=== PATIENT | male | born 1950 | race Caucasian/White ===

== ENCOUNTER 2019-04-05 12:18 | Emergency (ER) | payer OTHER ==
[2019-04-05 12:33] VITALS: BMI 28.8
--- NOTE | 2019-04-05 14:52 | PDOC ---
History of Present Illness - General Chief Complaint: Edema Stated Complaint: Abscess Boil Time Seen by Provider: 04/05/19 14:39 - History of Present Illness Initial Comments: 04/05/19 20:49 68M with pmh of stents and maxillary teeth removal 5 years ago presents with right-sided facial swelling, pain and redness since waking waking up this morning. The patient was asymptomatic last night. He states that the right side of the face is tender tot he touch, and extends from the lower eyelid to the right jaw line. Denies pain upon chewing. Denies fever, chills, n/v/d, Recent trauma or insect bite. Didn't take anything for the pain. Past History - Past Medical History Allergies/Adverse Reactions: Allergies Allergy/AdvReac Type Severity Reaction Status Date / Time No Known Allergies Allergy Verified 04/05/19 12:35 Home Medications: Ambulatory Orders Clindamycin [Cleocin -] 450 mg PO TID #63 capsule 04/05/19 predniSONE [Deltasone -] 40 mg PO DAILY #10 tablet 04/05/19 Cardiac Disorders: Yes (CAD) COPD: No - Surgical History Cardiac Surgery: Yes (stents) - Suicide/Smoking/Psychosocial Hx Smoking History: Former smoker Have you smoked in the past 12 months: No If you are a former smoker, when did you quit?: 2013 Information on smoking cessation initiated: No Hx Alcohol Use: No Drug/Substance Use Hx: No Review of Systems - Review of Systems Able to Perform ROS?: Yes Is the patient limited Amharic proficient: No Constitutional: No: Symptoms Reported HEENTM: Yes: See HPI Respiratory: No: Symptoms reported Cardiac (ROS): No: Symptoms Reported ABD/GI: No: Symptoms Reported : No: Symptoms Reported Musculoskeletal: No: Symptoms Reported Integumentary: No: Symptoms Reported Neurological: No: Symptoms reported All Other Systems: Reviewed and Negative *Physical Exam - Vital Signs Last Vital Signs Temp Pulse Resp BP Pulse Ox 98.1 F 100 H 20 133/104 H 99 04/05/19 12:30 04/05/19 12:30 04/05/19 12:30 04/05/19 12:30 04/05/19 12:30 - Physical Exam General Appearance: Yes: Nourished, Appropriately Dressed. No: Apparent Distress HEENT: positive: EOMI, ANA, Other (right sided erythematous swelling of the face with tenderness over zygomatic arch, extending from lower eyelid to jaw line. No change in vision, no pain or discomfort ranging the eye. ) ED Treatment Course - LABORATORY CBC & Chemistry Diagram: 04/05/19 15:10 04/05/19 15:10 Medical Decision Making - Medical Decision Making 04/05/19 20:54 Will start patient on antibiotics and obtain CT facial bone to r/o abscess. However this could very well be cellulitis, erysipelas due tot he redness and tenderness of the area. The swelling is extensive and the facial movements of the patients are ipaired on the right side. However this may also be some sort of inflammtion or allergic reaction, due to the rapid onset, non-progression of the rash, edematous nature of the skin. Ct read: polypoid thickening of the maxillary sinus, worse on the right. Patient feels better after Unasyn administration however the rash is the same size and just as swollen. Given the inflammatory nature of the Ct finding, will give trial of prednisone and benadryl. Patient signed out to Dr. Ayala. *DC/Admit/Observation/Transfer Diagnosis at time of Disposition: Facial cellulitis, Swelling of face - Discharge Dispostion Disposition: HOME Condition at time of disposition: Guarded - Prescriptions Prescriptions: Clindamycin [Cleocin -] 450 mg PO TID #63 capsule predniSONE [Deltasone -] 40 mg PO DAILY #10 tablet - Referrals - Patient Instructions Printed Discharge Instructions: DI for Cellulitis -- Adult Additional Instructions: You were seen today for facial swelling. Your white blood cell count was mildly high, indicating infection vs inflammation. You were advised to stay in the hospital admitted for further care. I have sent a steroid and antibiotic to your pharmacy of choice. 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 You received the first doses in the Emergency Department. Take Benadryl over the counter as needed for swelling. Take as advised on labels. Follow up with your primary care doctor within 3 days. Your care is not complete until you follow up. Return to the Emergency Department for increasing swelling, increasing redness, fever, vomiting, chest pain, shortness of breath, lightheadedness, difficulty breathing, noisy breathing or any other new, worsening or concerning symptoms. - Post Discharge Activity
[2019-04-05] MEDS ORDERED: AMPICILLIN NA/SULBACTAM NA 3 GM in SODIUM CHLORIDE 100 ML IVPB ONE (15:08)
[2019-04-05 15:31] LABS: BASO % 0.5 % (0-2.0); EOS % 0.3 % (0-4.5); HEMATOCRIT 42.8 % (35.4-49); LYMPH % 22.9 % (8-40); MCH 29.2 pg (25.7-33.7); MCHC 35.1 g/dl (32.0-35.9); MEAN CELL VOLUME 83.3 fl (80-96); MEAN PLT VOLUME 8.7 fl (7.5-11.1); MONO % 9.3 % (3.8-10.2); RBC 5.13 M/mm3 (4.00-5.60); RDW 13.3 % (11.9-15.9); WHITE BLOOD COUNT 10.6 K/mm3 (4.0-10.0)
[2019-04-05 15:34] LABS: PLATELET COUNT 200 K/MM3 (134-434)
[2019-04-05 15:55] LABS: ALBUMIN 3.8 g/dl (3.4-5.0); BLOOD UREA NITROGEN 13.8 mg/dL (7-18); CALCIUM 9.2 mg/dL (8.5-10.1); CREATININE 0.9 mg/dL (0.55-1.3)
--- NOTE | 2019-04-05 16:53 | PDOC ---
Documentation entered by Rico Roman SCRIBE, acting as scribe for Maria Eugenia Jose MD. Maria Eugenia Jose MD: This documentation has been prepared by the Abel bates Elijah, SCRIBE, under my direction and personally reviewed by me in its entirety. I confirm that the documentation accurately reflects all work, treatment, procedures, and medical decision making performed by me. Attending Attestation - Resident Resident Name: Francisco Sharp - ED Attending Attestation I have performed the following: I have examined & evaluated the patient, The case was reviewed & discussed with the resident, I agree w/resident's findings & plan - HPI HPI: 04/05/19 15:12 Patient is a 68 year old male with Cardiac Stents and HTN who presents to the ED with R-sided facial swelling beginning this morning. Patient reports that he woke up this morning, immediately noticed his face was swollen and notes he felt some tenderness on his cheek. Patient mentioned that nothing like this has happened in the past. Denies Pain, fever and chills. Allergies: NKA - Physicial Exam PE: 04/05/19 15:19 CONSTITUTIONAL: Well-appearing; well-nourished; in no apparent distress HEAD: Normocephalic; atraumatic EYES: PERRL; EOM intact FACE: +Erythema and Swelling of R-Side of face, not warm. +R-Sided Facial Droop ENMT: +Right Upper Gum Tenderness to Touch. Normal oropharynx NECK: Supple; non-tender; no cervical lymphadenopathy CARD: Normal S1, S2; no murmurs, rubs, or gallops RESP: Normal chest excursion with respiration; breath sounds clear and equal bilaterally; no wheezes, rhonchi, or rales ABD: Soft, non-distended; non-tender; no palpable organomegaly, no palpable hernias EXT: Normal ROM in all four extremities; non-tender to palpation; distal pulses intact SKIN: Warm, dry, no rash NEURO: No focal neurological deficiencies. - Medical Decision Making 04/05/19 19:14 68 y/o male awakened this morning with rt side facial swelling and sensitivity. PT is concerned this is related to the fact that he has several dental fragments still embed in his gums. PT reports having several teeth pulled approximately 5 years ago but the teeth were not completely extracted. He said he was warned that if he ever developed swelling over the area he was at risk for infection. Pt currently denies fever, insect bite, headache, change in vision or other symptoms. Pt with tender upper gum line on physical exam concerning for possible dental abscess.Pt's labs noted, pt received Unasyn in ED , ct of facial bones ordered to further evaluate condition.Case endorsed to oncoming team to f/u CT and make final disposition for this patient.Pt was in stable condition at time of writers last exam.
[2019-04-05] MEDS ORDERED: predniSONE 10 MG TABLET (UD) PO ONE (19:01)
--- NOTE | 2019-04-05 19:27 | PDOC ---
*Physical Exam - Vital Signs Last Vital Signs Temp Pulse Resp BP Pulse Ox 98.0 F 98 H 14 135/96 96 04/05/19 18:21 04/05/19 18:21 04/05/19 18:21 04/05/19 18:21 04/05/19 18:21 ED Treatment Course - LABORATORY CBC & Chemistry Diagram: 04/05/19 15:10 04/05/19 15:10 - ADDITIONAL ORDERS Additional order review: Laboratory Results 04/05/19 15:10 Sodium 138 Potassium 4.0 Chloride 107 Carbon Dioxide 21 Anion Gap 11 BUN 13.8 Creatinine 0.9 Est GFR (CKD-EPI)AfAm 100.65 Est GFR (CKD-EPI)NonAf 86.84 Random Glucose 221 H Calcium 9.2 Total Bilirubin 1.0 AST 5 L ALT 20 Alkaline Phosphatase 110 Total Protein 7.0 Albumin 3.8 04/05/19 15:10 RBC 5.13 MCV 83.3 MCHC 35.1 RDW 13.3 MPV 8.7 Neutrophils % 67.0 Lymphocytes % 22.9 Monocytes % 9.3 Eosinophils % 0.3 Basophils % 0.5 - Medications Given in the ED: ED Medications Discontinued Medications Generic Name Dose Route Start Last Admin Trade Name Freq PRN Reason Stop Dose Admin Ampicillin Sodium/Sulbactam 100 mls @ 200 mls/hr 04/05/19 15:08 04/05/19 16: 02 Sodium 3 gm/ Sodium Chloride IVPB 04/05/19 15:37 200 mls/hr ONCE ONE Administration Medical Decision Making - Medical Decision Making Pt signed out to me by Dr. Sharp, EM Day Resident. 68 year old male with presented to ED for right sided facial swelling. Initial Vital Signs Temp Pulse Resp BP Pulse Ox 98.1 F 100 H 20 133/104 H 99 04/05/19 12:30 04/05/19 12:30 04/05/19 12:30 04/05/19 12:30 04/05/19 12:30 Afebrile. Mild tachycardia. No tachypnea. Mild hypertension. No hypoxia on room air. Vital Signs Temperature 98.0 F 04/05/19 18:21 Pulse Rate 98 H 04/05/19 18:21 Respiratory Rate 14 04/05/19 18:21 Blood Pressure 135/96 04/05/19 18:21 O2 Sat by Pulse Oximetry (%) 96 04/05/19 18:21 CBC WBC 10.6 K/mm3 (4.0-10.0) H 04/05/19 15:10 RBC 5.13 M/mm3 (4.00-5.60) 04/05/19 15:10 Hgb 15.0 GM/dL (11.7-16.9) 04/05/19 15:10 Hct 42.8 % (35.4-49) 04/05/19 15:10 MCV 83.3 fl (80-96) 04/05/19 15:10 MCH 29.2 pg (25.7-33.7) 04/05/19 15:10 MCHC 35.1 g/dl (32.0-35.9) 04/05/19 15:10 RDW 13.3 % (11.9-15.9) 04/05/19 15:10 Plt Count 200 K/MM3 (134-434) 04/05/19 15:10 MPV 8.7 fl (7.5-11.1) 04/05/19 15:10 Absolute Neuts (auto) 7.1 K/mm3 (1.5-8.0) 04/05/19 15:10 Neutrophils % 67.0 % (42.8-82.8) 04/05/19 15:10 Lymphocytes % 22.9 % (8-40) 04/05/19 15:10 Monocytes % 9.3 % (3.8-10.2) 04/05/19 15:10 Eosinophils % 0.3 % (0-4.5) 04/05/19 15:10 Basophils % 0.5 % (0-2.0) 04/05/19 15:10 Nucleated RBC % 0 % (0-0) 04/05/19 15:10 Mild leukocytosis. No anemia. CMP Sodium 138 mmol/L (136-145) 04/05/19 15:10 Potassium 4.0 mmol/L (3.5-5.1) 04/05/19 15:10 Chloride 107 mmol/L (98-107) 04/05/19 15:10 Carbon Dioxide 21 mmol/L (21-32) 04/05/19 15:10 Anion Gap 11 MMOL/L (8-16) 04/05/19 15:10 BUN 13.8 mg/dL (7-18) 04/05/19 15:10 Creatinine 0.9 mg/dL (0.55-1.3) 04/05/19 15:10 Est GFR (CKD-EPI)AfAm 100.65 04/05/19 15:10 Est GFR (CKD-EPI)NonAf 86.84 04/05/19 15:10 Random Glucose 221 mg/dL (74-106) H 04/05/19 15:10 Calcium 9.2 mg/dL (8.5-10.1) 04/05/19 15:10 Total Bilirubin 1.0 mg/dL (0.2-1) 04/05/19 15:10 AST 5 U/L (15-37) L 04/05/19 15:10 ALT 20 U/L (13-61) 04/05/19 15:10 Alkaline Phosphatase 110 U/L (45-117) 04/05/19 15:10 Total Protein 7.0 g/dl (6.4-8.2) 04/05/19 15:10 Albumin 3.8 g/dl (3.4-5.0) 04/05/19 15:10 No electrolyte abnormalities. No [place]. No transaminitis. CT Face/Paranasalsinus/manible without IV contrast: No definiitive periapical/ gingival abscesses. polypoid mucosal thickening of bilateral maxillary antra, right greater than left. orbits and EOM are within normal limits. the soft tissues are unremarkable. Medications given: Benadryl, prednisone, unasyn Pt to be admitted for facial cellulitis/swelling. Pending admission. 04/05/19 19:58 Need for admission for observation, IV antibiotics, steroid treatment. Pt refused admission. Will prescribe prednisone, clindamycin. Given return precautions. *DC/Admit/Observation/Transfer Diagnosis at time of Disposition: Facial cellulitis, Swelling of face - Discharge Dispostion Disposition: HOME Condition at time of disposition: Guarded Decision to Admit order: No - Prescriptions Prescriptions: Clindamycin [Cleocin -] 450 mg PO TID #63 capsule predniSONE [Deltasone -] 40 mg PO DAILY #10 tablet - Referrals - Patient Instructions Printed Discharge Instructions: DI for Cellulitis -- Adult Additional Instructions: You were seen today for facial swelling. Your white blood cell count was mildly high, indicating infection vs inflammation. You were advised to stay in the hospital admitted for further care. I have sent a steroid and antibiotic to your pharmacy of choice. group president your prescriptions and take as advised on label. You received the first doses in the Emergency Department. Take Benadryl over the counter as needed for swelling. Take as advised on labels. Follow up with your primary care doctor within 3 days. Your care is not complete until you follow up. Return to the Emergency Department for increasing swelling, increasing redness, fever, vomiting, chest pain, shortness of breath, lightheadedness, difficulty breathing, noisy breathing or any other new, worsening or concerning symptoms. - Post Discharge Activity
[2019-04-05] MEDS ORDERED: predniSONE 10 MG TABLET (UD) ONE (19:28)
[2019-04-06 07:28] VITALS: BP 151/91; PULSE 100; TEMP 98.3
== END 2019-04-05 22:20 | disposition home or self-care (01) ==
LOC: JER 12:18
PROC: 3E03329 Introduction of Other Anti-infective into Peripheral Vein, Percutaneous Approach (ICD-10-PCS; principal; 2019-04-05)
PROC: 3E033GC Introduction of Other Therapeutic Substance into Peripheral Vein, Percutaneous Approach (ICD-10-PCS; 2019-04-05)
DX: L03.211 Cellulitis of face (principal)
CPT/HCPCS: 36415; 70486-TC; 80053; 85025; 96365; 96375; 99282-25

== ENCOUNTER 2021-11-28 07:35 | Emergency (ER) | payer OTHER ==
[2021-11-28 07:53] VITALS: BP 134/82; PULSE 72; TEMP 97.4; BMI 28.3
[2021-11-28] MEDS ORDERED: ACETAMINOPHEN 500 MG TABLET (FP) PO ONE (09:15)
[2021-11-28] MEDS ORDERED: ACETAMINOPHEN 325 MG TABLET (FP) ONE (10:01)
== END 2021-11-28 10:13 | disposition home or self-care (01) ==
LOC: JER 07:35
DX: M54.50 Low back pain, unspecified (principal); W19.XXXA Unspecified fall, initial encounter
CPT/HCPCS: 72131-TC; 99284-25